=== PATIENT | male | born 1970 | race African-American/Black ===

== ENCOUNTER 2016-11-03 13:40 | Inpatient (IN) | payer MEDICARE, MEDICAID ==
[~2016-11-03] VITALS: Ht 172.7 cm; Wt 99.8 kg
[2016-11-03 17:03] LABS: BASOPHILS % 1.1 % (0.0-2.0); EOSINOPHILS % 0.9 % (0.0-5.0); HEMOGLOBIN. 9.9 g/dL (14.0-18.0); LYMPHOCYTES % 18.8 % (20.0-50.0); MEAN CORPUSCULAR HEMOGLOBIN 31.8 pg (28.0-32.0); MEAN CORPUSCULAR VOLUME 96.3 fL (80.0-94.0); MEAN PLATELET VOLUME 7.3 fl (7.4-10.4); MONOCYTES % 11.1 % (2.0-8.0); NEUTROPHILS % 68.1 % (40.0-76.0); PLATELET 277 x1000/uL (130-400); RED BLOOD CELL COUNT 3.12 mill/uL (4.7-6.1); RED CELL DISTRIBUTION WIDTH 17.4 % (11.6-14.6); WHITE BLOOD COUNT 6.7 x1000/uL (4.5-11.0)
[2016-11-03 17:08] LABS: CHLORIDE 99 mEq/L (98-107); INDEX HEMOLYSI 1 (1-3); INDEX ICTERIC 1 (1-4); INDEX LIPEMIC 1 (1-3)
[2016-11-03 17:10] LABS: PROTHROMBIN TIME 10.7 sec
[2016-11-03 17:22] LABS: ALANINE AMINOTRANSFERASE 15 IU/L (13-61); ALBUMIN 3.5 g/dL (3.4-5.0); ANION GAP 20; CALCIUM 7.9 mg/dL (8.5-10.1); CARBON DIOXIDE 25 mEq/L (21-32); UREA NITROGEN BLOOD 59 mg/dL (7-21); eGFR 3 mL/min (>60)
[2016-11-03] MEDS ORDERED: DEXTROSE 50% WATER 50ML SYRINGE IV PRN (20:30)
[2016-11-03] MEDS ORDERED: IPRATROPIUM/ALBUTEROL 0.5-3(2.5)MG/3ML NEB INH PRN (20:30)
[2016-11-03] MEDS ORDERED: TRAMADOL 50MG TABLET PO PRN (20:30)
[2016-11-03] MEDS ORDERED: MAGNESIUM/ALUMINUM HYDROXIDE/SIMETHICONE 30ML UDC PO PRN (20:30)
[2016-11-03] MEDS ORDERED: DIPHENHYDRAMINE 50MG/ML VIAL IV PRN (20:30)
[2016-11-03] MEDS ORDERED: NITROGLYCERIN 0.4MG TABLET SL SL PRN (20:30)
[2016-11-03] MEDS ORDERED: GUAIFENESIN 200MG/10ML SUGAR FREE UDC PO PRN (20:30)
[2016-11-03] MEDS ORDERED: CLONIDINE 0.1MG TABLET PO PRN (20:30)
[2016-11-03] MEDS ORDERED: ZOLPIDEM TARTRATE 5MG TABLET PO PRN (20:30)
[2016-11-03] MEDS ORDERED: ACETAMINOPHEN 325MG TABLET PO PRN (20:30)
[2016-11-03] MEDS ORDERED: DOCUSATE SODIUM 100MG CAPSULE PO PRN (20:30)
[2016-11-03] MEDS: MORPHINE SULFATE 2 MG/ML CPJ (NOT FOR IM USE) IV PRN (20:41)
[2016-11-03] MEDS: ONDANSETRON HCL 4MG/2ML VIAL IV PRN (20:41)
[2016-11-03] MEDS ORDERED: HYDROCODONE/ACETAMINOPHEN 5/325MG TABLET PO ONE (20:45)
[2016-11-03] MEDS: INSULIN LISPRO 100 UNITS/ML SUBCUT SCH (21:00)
[2016-11-03] MEDS: BLOOD SUGAR DIAGNOSTIC STRIP TEST SCH (21:59)
[2016-11-03 22:15] VITALS: BP 180/108
[2016-11-04] VITALS: BP 106/67
[2016-11-04 04:00] VITALS: BP 121/71
[2016-11-04] MEDS: BLOOD SUGAR DIAGNOSTIC STRIP TEST SCH ×4 (06:21→20:34)
[2016-11-04] MEDS: MORPHINE SULFATE 2 MG/ML CPJ (NOT FOR IM USE) IV PRN ×2 (06:28→12:07)
[2016-11-04] MEDS: ONDANSETRON HCL 4MG/2ML VIAL IV PRN ×3 (06:36→18:47)
[2016-11-04] MEDS ORDERED: SEVELAMER CARBONATE 800 MG TABLET PO SCH (07:50)
[2016-11-04] MEDS: INSULIN LISPRO 100 UNITS/ML SUBCUT SCH ×4 (07:50→20:33)
[2016-11-04 08:00] VITALS: BP 120/77
[2016-11-04] MEDS: SEVELAMER CARBONATE 800 MG TABLET PO SCH ×3 (08:20→18:20)
[2016-11-04] MEDS: AMLODIPINE 10MG TABLET PO SCH (09:00)
[2016-11-04] MEDS: LOSARTAN POTASSIUM 50 MG TABLET PO SCH ×2 (09:00→20:30)
[2016-11-04] MEDS: FOLIC ACID/VITAMIN B COMP W-C TABLET PO SCH (09:00)
[2016-11-04] MEDS: ENOXAPARIN 30MG/0.3ML SYR SUBCUT SCH (09:00)
[2016-11-04] MEDS: PANTOPRAZOLE SODIUM 40 MG/VIAL IV SCH (09:06)
[2016-11-04] MEDS: CALCIUM ACETATE 667MG CAPSULE PO SCH ×3 (09:16→20:30)
[2016-11-04 11:47] VITALS: BP 122/78
[2016-11-04] MEDS ORDERED: BACITRACIN ZINC 15GM TUBE TOP ONE (14:48)
[2016-11-04] MEDS ORDERED: GELATIN SPONGE,ABSORBABLE SZ 100 ONE (14:48)
[2016-11-04] MEDS ORDERED: THROMBIN (BOVINE) 5000 UNITS/VIAL TOP ONE (14:48)
[2016-11-04] MEDS ORDERED: BUPIVACAINE HCL/PF 0.5% (5MG/ML) 10ML ONE (14:49)
[2016-11-04] MEDS ORDERED: HEPARIN SODIUM 1,000 UNIT/1ML VIAL IV ONE (14:49)
[2016-11-04] MEDS ORDERED: BACITRACIN 50,000 UNITS/VIAL ONE (14:49)
[2016-11-04] MEDS ORDERED: LIDOCAINE HCL 1% 20ML VIAL (Pyxis) INJ ONE ×2 (14:49→16:10)
[2016-11-04] MEDS ORDERED: ONDANSETRON HCL 4MG/2ML VIAL IV PRN (15:30)
[2016-11-04] MEDS ORDERED: MEPERIDINE HCL/PF 25MG/ML CPJ IV PRN (15:30)
[2016-11-04] MEDS ORDERED: LABETALOL HCL 20MG/4ML CARPUJECT IV PRN (15:30)
[2016-11-04] MEDS ORDERED: HYDROMORPHONE HCL/PF 2MG/ML CPJ IV PRN (15:30)
[2016-11-04] MEDS ORDERED: CEFAZOLIN SODIUM 1000MG/VIAL ONE (16:10)
[2016-11-04] MEDS ORDERED: DEXAMETHASONE 4MG/ML 1ML VIAL ONE (16:10)
[2016-11-04] MEDS ORDERED: SODIUM CHLORIDE 0.9% 10ML VIAL ONE (16:10)
[2016-11-04] MEDS ORDERED: PROPOFOL 200MG/20ML VIAL IV ONE ×2 (16:10→16:17)
[2016-11-04] MEDS ORDERED: ONDANSETRON HCL 4MG/2ML VIAL ONE (16:11)
[2016-11-04] MEDS ORDERED: FENTANYL CITRATE/PF 50MCG/ML 2ML VIAL ONE (16:13)
[2016-11-04] MEDS ORDERED: HEPARIN 1000 UNITS/ML 10ML ONE (16:41)
[2016-11-04 18:00] VITALS: BP 148/91
[2016-11-04] MEDS: MORPHINE SULFATE 4 MG/ML CPJ (NOT FOR IM USE) IV PRN (18:48)
[2016-11-04 20:00] VITALS: BP 139/97
[2016-11-04] MEDS ORDERED: EPOETIN ALFA 4000UNITS/ML VIAL SUBCUT SCH (21:00)
[2016-11-05] VITALS: BP 155/87
[2016-11-05] MEDS: MORPHINE SULFATE 4 MG/ML CPJ (NOT FOR IM USE) IV PRN (00:54)
[2016-11-05 04:51] VITALS: BP 157/93
[2016-11-05] MEDS: BLOOD SUGAR DIAGNOSTIC STRIP TEST SCH ×4 (06:41→21:00)
[2016-11-05 08:00] VITALS: BP 128/73
[2016-11-05] MEDS ORDERED: METHADONE HCL 10MG TABLET PO PRN (09:00)
[2016-11-05] MEDS ORDERED: PARICALCITOL 5 MCG/ML 1ML IV NR (09:30)
[2016-11-05] MEDS: INSULIN LISPRO 100 UNITS/ML SUBCUT SCH ×4 (09:56→21:00)
[2016-11-05] MEDS: PANTOPRAZOLE SODIUM 40 MG/VIAL IV SCH (09:57)
[2016-11-05] MEDS: SEVELAMER CARBONATE 800 MG TABLET PO SCH ×3 (09:57→18:28)
[2016-11-05] MEDS: CALCIUM ACETATE 667MG CAPSULE PO SCH ×4 (09:58→22:36)
[2016-11-05] MEDS: FOLIC ACID/VITAMIN B COMP W-C TABLET PO SCH (09:58)
[2016-11-05] MEDS: LOSARTAN POTASSIUM 50 MG TABLET PO SCH ×2 (11:32→21:00)
[2016-11-05] MEDS: AMLODIPINE 10MG TABLET PO SCH (11:32)
[2016-11-05] MEDS: ENOXAPARIN 30MG/0.3ML SYR SUBCUT SCH (11:38)
[2016-11-05 12:00] VITALS: BP 137/76
[2016-11-05] MEDS: MORPHINE SULFATE 2 MG/ML CPJ (NOT FOR IM USE) IV PRN ×2 (15:22→21:32)
[2016-11-05 16:00] VITALS: BP 135/89
[2016-11-05] MEDS ORDERED: CINACALCET HCL 30MG TABLET PO SCH (19:00)
[2016-11-05 20:50] VITALS: BP 95/64
[2016-11-06] VITALS: BP 120/67
[2016-11-06 04:42] VITALS: BP 139/87
[2016-11-06] MEDS: BLOOD SUGAR DIAGNOSTIC STRIP TEST SCH (06:47)
[2016-11-06 08:00] VITALS: BP 112/74
[2016-11-06] MEDS: INSULIN LISPRO 100 UNITS/ML SUBCUT SCH (08:08)
[2016-11-06 08:11] VITALS: BP 112/74
[2016-11-06] MEDS: ENOXAPARIN 30MG/0.3ML SYR SUBCUT SCH (08:11)
[2016-11-06 08:22] VITALS: BP 112/74
[2016-11-06] MEDS: MORPHINE SULFATE 2 MG/ML CPJ (NOT FOR IM USE) IV PRN (08:22)
[2016-11-06] MEDS: ONDANSETRON HCL 4MG/2ML VIAL IV PRN (08:22)
[2016-11-06] MEDS: SEVELAMER CARBONATE 800 MG TABLET PO SCH (08:57)
[2016-11-06] MEDS: LOSARTAN POTASSIUM 50 MG TABLET PO SCH (08:58)
[2016-11-06] MEDS: AMLODIPINE 10MG TABLET PO SCH (08:58)
[2016-11-06] MEDS: FOLIC ACID/VITAMIN B COMP W-C TABLET PO SCH (08:59)
[2016-11-06] MEDS: CALCIUM ACETATE 667MG CAPSULE PO SCH (08:59)
[2016-11-06] MEDS ORDERED: FAMOTIDINE 20MG TABLET PO SCH (09:00)
== END 2016-11-06 11:20 | disposition home or self-care (01) | DRG 252 ==
LOC: ER 16:39 → 6WST 18:49 → SUPCPDRO 20:15
PROVIDERS: ADMIT Internal Medicine; ATTEND Internal Medicine
PROC: 03R Upper Arteries, Replacement (ICD-10-PCS; 2016-11-04)
PROC: 03C70ZZ Extirpation of Matter from Right Brachial Artery, Open Approach (ICD-10-PCS; principal; 2016-11-04 14:30)
PROC: 5A1D00Z (ICD-10-PCS; 2016-11-05)
DX: T82.868A Thrombosis due to vascular prosthetic devices, implants and grafts, initial encounter (principal); I50.33 Acute on chronic diastolic (congestive) heart failure; N18.6 End stage renal disease; I13.2 Hypertensive heart and chronic kidney disease with heart failure and with stage 5 chronic kidney disease, or end stage renal disease; T82.41XA Breakdown (mechanical) of vascular dialysis catheter, initial encounter; Z99.2 Dependence on renal dialysis; D63.8 Anemia in other chronic diseases classified elsewhere; M79.89 Other specified soft tissue disorders; R91.8 Other nonspecific abnormal finding of lung field; Y84.1 Kidney dialysis as the cause of abnormal reaction of the patient, or of later complication, without mention of misadventure at the time of the procedure; E11.22 Type 2 diabetes mellitus with diabetic chronic kidney disease; E83.51 Hypocalcemia; Z79.4 Long term (current) use of insulin; Z83.3 Family history of diabetes mellitus; Y92.89 Other specified places as the place of occurrence of the external cause; Z91.15 Patient's noncompliance with renal dialysis
CPT/HCPCS: 36415; 71010; 80053; 80061; 82962; 83036; 85025; 85610; 88304; 96374; 96375; 99285; A4216; C9113; J0690; J0885; J1100; J1170; J1644; J1650; J1815; J2270; J2405; J2501; J2704; J3010; J3490; J7040

== ENCOUNTER 2016-12-04 17:37 | Inpatient (IN) | payer MEDICARE, MEDICAID ==
[~2016-12-04] VITALS: Ht 172.7 cm; Wt 91.6 kg
[2016-12-04 19:21] LABS: BASOPHILS % 0.5 % (0.0-2.0); EOSINOPHILS % 2.1 % (0.0-5.0); HEMATOCRIT. 27.2 % (42.0-52.0); HEMOGLOBIN. 8.8 g/dL (14.0-18.0); LYMPHOCYTES % 19.7 % (20.0-50.0); MEAN CORPUSCULAR HEMOGLOBIN 29.9 pg (28.0-32.0); MEAN CORPUSCULAR HGB CONC 32.2 g/dL (31.0-37.0); MEAN CORPUSCULAR VOLUME 92.8 fL (80.0-94.0); MEAN PLATELET VOLUME 8.2 fl (7.4-10.4); MONOCYTES % 12.6 % (2.0-8.0); NEUTROPHILS % 65.1 % (40.0-76.0); PLATELET 241 x1000/uL (130-400); RED BLOOD CELL COUNT 2.93 mill/uL (4.7-6.1); RED CELL DISTRIBUTION WIDTH 15.7 % (11.6-14.6); WHITE BLOOD COUNT 7.3 x1000/uL (4.5-11.0)
[2016-12-04 19:27] LABS: INR 1.1; PARTIAL THROMBOPLASTIN TIME 25.4 sec (24.0-34.0); PROTHROMBIN TIME 11.3 sec
[2016-12-04 19:34] LABS: ALANINE AMINOTRANSFERASE 11 IU/L (13-61); ALBUMIN 3.3 g/dL (3.4-5.0); ANION GAP 15; CARBON DIOXIDE 35 mEq/L (21-32); CHLORIDE 93 mEq/L (98-107); INDEX HEMOLYSI 1 (1-3); INDEX ICTERIC 1 (1-4); INDEX LIPEMIC 1 (1-3); UREA NITROGEN BLOOD 37 mg/dL (7-21); eGFR 5 mL/min (>60)
[2016-12-05] VITALS (8 sets, daily range): BP systolic 97–147; BP diastolic 63–94
[2016-12-05] MEDS ORDERED: [UNRECOGNIZED DRUG - OTHER] SUBCUT (01:41)
[2016-12-05] MEDS ORDERED: ASPI-1035 PO (01:41)
[2016-12-05] MEDS ORDERED: HYDR-523 PO (01:41)
[2016-12-05] MEDS ORDERED: SEVE800T8 PO (01:41)
[2016-12-05] MEDS ORDERED: DEXTROSE 50% WATER 50ML SYRINGE IV PRN (03:15)
[2016-12-05] MEDS ORDERED: CLONIDINE 0.1MG TABLET PO PRN (03:15)
[2016-12-05] MEDS: BLOOD SUGAR DIAGNOSTIC STRIP TEST SCH ×4 (07:40→20:43)
[2016-12-05] MEDS: INSULIN LISPRO 100 UNITS/ML SUBCUT SCH ×7 (07:40→20:43)
[2016-12-05 08:26] LABS: BASOPHILS % 0.6 % (0.0-2.0); EOSINOPHILS % 3.3 % (0.0-5.0); HEMATOCRIT. 27.3 % (42.0-52.0); HEMOGLOBIN. 8.6 g/dL (14.0-18.0); LYMPHOCYTES % 23.2 % (20.0-50.0); MEAN CORPUSCULAR HEMOGLOBIN 29.2 pg (28.0-32.0); MEAN CORPUSCULAR HGB CONC 31.5 g/dL (31.0-37.0); MEAN CORPUSCULAR VOLUME 92.6 fL (80.0-94.0); MEAN PLATELET VOLUME 8.5 fl (7.4-10.4); MONOCYTES % 12.2 % (2.0-8.0); NEUTROPHILS % 60.7 % (40.0-76.0); PLATELET 261 x1000/uL (130-400); RED BLOOD CELL COUNT 2.95 mill/uL (4.7-6.1); RED CELL DISTRIBUTION WIDTH 15.9 % (11.6-14.6); WHITE BLOOD COUNT 6.4 x1000/uL (4.5-11.0)
[2016-12-05] MEDS: SEVELAMER CARBONATE 800 MG TABLET PO SCH ×3 (08:40→18:53)
[2016-12-05 08:43] LABS: CALCIUM 7.9 mg/dL (8.5-10.1)
[2016-12-05] MEDS ORDERED: SORBITOL 70% SOLN 30ML PO NR ×2 (09:00→13:00)
[2016-12-05] MEDS: PANTOPRAZOLE SODIUM 40 MG/VIAL IV SCH (09:00)
[2016-12-05] MEDS: LOSARTAN POTASSIUM 50 MG TABLET PO SCH ×2 (09:00→20:43)
[2016-12-05] MEDS: AMLODIPINE 10MG TABLET PO SCH (09:00)
[2016-12-05] MEDS ORDERED: SODIUM CHLORIDE 0.9% 10ML VIAL ONE (11:53)
[2016-12-05] MEDS ORDERED: SIMETHICONE 40 MG/0.6 ML 30ML ONE (11:53)
[2016-12-05] MEDS ORDERED: NA PHOS,M-B/NA PHOS,DI-BA ENEMA 118ML PR NR (14:00)
[2016-12-05] MEDS ORDERED: FENTANYL CITRATE/PF 50MCG/ML 2ML VIAL IV PRN (15:23)
[2016-12-05] MEDS ORDERED: FENTANYL CITRATE/PF 50MCG/ML 2ML VIAL ONE (15:28)
[2016-12-05] MEDS ORDERED: MIDAZOLAM HCL 5 MG/5 ML VIAL ONE (15:28)
[2016-12-05] MEDS ORDERED: MIDAZOLAM HCL 5 MG/5 ML VIAL IV PRN (16:15)
[2016-12-05] MEDS ORDERED: CINACALCET HCL 30MG TABLET PO SCH (17:00)
[2016-12-05] MEDS: HYDROCODONE/ACETAMINOPHEN 5/325MG TABLET PO PRN ×2 (17:04→20:54)
[2016-12-05] MEDS ORDERED: INSULIN DETEMIR UD 100 UNITS/ML SYR SUBCUT SCH (22:00)
[2016-12-06] VITALS: BP 125/72
[2016-12-06 02:00] VITALS: BP 125/72
[2016-12-06 04:00] VITALS: BP 110/65
[2016-12-06] MEDS: BLOOD SUGAR DIAGNOSTIC STRIP TEST SCH (07:40)
[2016-12-06 08:00] VITALS: BP 135/82
[2016-12-06 08:34] LABS: BASOPHILS % 0.8 % (0.0-2.0); EOSINOPHILS % 3.8 % (0.0-5.0); HEMATOCRIT. 25.6 % (42.0-52.0); HEMOGLOBIN. 8.2 g/dL (14.0-18.0); LYMPHOCYTES % 23.8 % (20.0-50.0); MEAN CORPUSCULAR HEMOGLOBIN 30.1 pg (28.0-32.0); MEAN CORPUSCULAR HGB CONC 32.2 g/dL (31.0-37.0); MEAN CORPUSCULAR VOLUME 93.6 fL (80.0-94.0); MEAN PLATELET VOLUME 8.3 fl (7.4-10.4); MONOCYTES % 11.1 % (2.0-8.0); NEUTROPHILS % 60.5 % (40.0-76.0); PLATELET 223 x1000/uL (130-400); RED BLOOD CELL COUNT 2.74 mill/uL (4.7-6.1); RED CELL DISTRIBUTION WIDTH 16.1 % (11.6-14.6); WHITE BLOOD COUNT 6.4 x1000/uL (4.5-11.0)
[2016-12-06] MEDS: INSULIN LISPRO 100 UNITS/ML SUBCUT SCH ×2 (08:40→08:46)
[2016-12-06] MEDS: PANTOPRAZOLE SODIUM 40 MG/VIAL IV SCH (08:40)
[2016-12-06] MEDS: LOSARTAN POTASSIUM 50 MG TABLET PO SCH (08:41)
[2016-12-06] MEDS: SEVELAMER CARBONATE 800 MG TABLET PO SCH (08:41)
[2016-12-06] MEDS: AMLODIPINE 10MG TABLET PO SCH (08:41)
[2016-12-06 09:03] LABS: CALCIUM 7.5 mg/dL (8.5-10.1)
[2016-12-06 11:20] VITALS: BP 114/67
[2016-12-06 11:22] VITALS: BP 135/82
== END 2016-12-06 11:45 | disposition home or self-care (01) | DRG 393 ==
LOC: ER 18:46 → 7WST 22:06
PROVIDERS: ADMIT Hospitalist; ATTEND Hospitalist
PROC: 0DJD8ZZ Inspection of Lower Intestinal Tract, Via Natural or Artificial Opening Endoscopic (ICD-10-PCS; 2016-12-05)
PROC: 5A1D00Z (ICD-10-PCS; principal; 2016-12-05 15:30)
DX: K64.8 Other hemorrhoids (principal); N18.6 End stage renal disease; K62.5 Hemorrhage of anus and rectum; D62 Acute posthemorrhagic anemia; I12.0 Hypertensive chronic kidney disease with stage 5 chronic kidney disease or end stage renal disease; N25.81 Secondary hyperparathyroidism of renal origin; E10.22 Type 1 diabetes mellitus with diabetic chronic kidney disease; Z79.4 Long term (current) use of insulin; Z83.3 Family history of diabetes mellitus; Z87.19 Personal history of other diseases of the digestive system; Z99.2 Dependence on renal dialysis
CPT/HCPCS: 36415; 71010; 80048; 80053; 82962; 85025; 85610; 85730; 86850; 86900; 93005; 99285; A4216; C9113; J1815; J2250; J3010; J7030

== ENCOUNTER 2017-02-21 17:18 | Inpatient (IN) | payer MEDICARE, MEDICAID ==
[~2017-02-21] VITALS: Ht 172.7 cm; Wt 70.8 kg
[~2017-02-21 17:18] MED LIST: ASPI-1159 PO; HYDR-523 PO; SEVE800T8 PO; [UNRECOGNIZED DRUG - OTHER] SUBCUT
[2017-02-21] MEDS ORDERED: ACETAMINOPHEN 325MG TABLET PO STA ×2 (19:04→19:27)
[2017-02-21] MEDS ORDERED: LEVOFLOXACIN 750MG PREMIX 150 ML IV ONE (19:15)
[2017-02-21] MEDS ORDERED: VANCOMYCIN 1 G PREMIX 200 ML IV ONE (19:15)
[2017-02-21 19:18] LABS: HEMATOCRIT. 38.2 % (42.0-52.0); HEMOGLOBIN. 12.6 g/dL (14.0-18.0); MEAN PLATELET VOLUME 8.5 fl (7.4-10.4); PLATELET 196 x1000/uL (130-400); RED CELL DISTRIBUTION WIDTH 16.8 % (11.6-14.6)
[2017-02-21 19:24] LABS: INR 1.2
[2017-02-21] MEDS ORDERED: SODIUM CHLORIDE 0.9% 1,000 ML IV ONE (19:28)
[2017-02-21 19:34] LABS: CARBON DIOXIDE 20 mEq/L (21-32); CHLORIDE 95 mEq/L (98-107); ETHANOL BLOOD < 10 mg/dL; TROPONIN I 0.08 ng/mL (0.00-0.04)
[2017-02-21 19:38] LABS: BG CARBOXYHEMOGLOBIN 0.4 % (0.5-1.5); BG FRACTION INSPIRED OXYGEN 32; BG HCO3 ACT 15.8 mmol/L (22.0-26.0); BG METHEMOGLOBIN 0.4 % (0.0-1.5); BG OXYHEMOGLOBIN 95.2 % (94.0-97.0); BG PCO2 27.9 mmHg (35.0-45.0); BG PH 7.371 (7.350-7.450); BG PO2 98.2 mmHg (75.0-100.0); BG SAMPLE SITE LEFT RADIAL; BG TOTAL HEMOGLOBIN 12.8 g/dL (12.0-18.0); BG VENT MODE NASAL CANNULA
[2017-02-21] MEDS: ONDANSETRON HCL 4MG/2ML VIAL IV PRN (19:57)
[2017-02-21 21:16] LABS: CLARITY URINE CLOUDY (CLEAR); COLOR URINE YELLOW (YELLOW); GLUCOSE URINE TRACE (NEGATIVE); KETONES URINE TRACE (NEGATIVE); LEUKOCYTE ESTERASE URINE NEGATIVE (NEGATIVE); NITRITE URINE NEGATIVE (NEGATIVE); OCCULT BLOOD URINE 2+ (NEGATIVE); PH URINE 5.5 (4.5-8.0); PROTEIN URINE 4+ (NEGATIVE); SPECIFIC GRAVITY URINE 1.019 (1.005-1.030); UROBILINOGEN URINE 0.2 E.U./dL (0.2-1.0)
[2017-02-21 21:28] LABS: PLATELET ESTIMATE NORMAL
[2017-02-21 21:48] LABS: *AMPHETAMINES SCREEN URINE NEGATIVE (NEGATIVE); *BARBITURATES SCREEN URINE NEGATIVE (NEGATIVE); *BENZODIAZEPINES SCREEN URINE NEGATIVE (NEGATIVE); *COCAINE SCREEN URINE NEGATIVE (NEGATIVE); CANNABINOID URINE SCREEN NEGATIVE (NEGATIVE); METHADONE URINE SCREEN NEGATIVE (NEGATIVE); OPIATES URINE SCREEN NEGATIVE (NEGATIVE); PHENCYCLIDINE URINE SCREEN NEGATIVE (NEGATIVE)
[2017-02-22] MEDS ORDERED: CLONIDINE 0.1MG TABLET PO PRN (03:45)
[2017-02-22] MEDS ORDERED: METOPROLOL TARTRATE 25MG TABLET PO NR (03:45)
[2017-02-22] MEDS ORDERED: ONDANSETRON HCL 4MG TABLET PO PRN (03:45)
[2017-02-22] MEDS ORDERED: ACETAMINOPHEN 325MG TABLET PO PRN ×2 (03:45→10:30)
[2017-02-22] MEDS: MORPHINE SULFATE 2 MG/ML CPJ (NOT FOR IM USE) IV PRN ×3 (03:56→20:51)
[2017-02-22] MEDS: ONDANSETRON HCL 4MG/2ML VIAL IV PRN ×4 (03:57→20:51)
[2017-02-22 08:54] VITALS: BP 161/93
[2017-02-22] MEDS ORDERED: ACETAMINOPHEN 650MG SUPP PR PRN (10:30)
[2017-02-22] MEDS ORDERED: DIPHENHYDRAMINE 50MG/ML VIAL IV PRN (10:30)
[2017-02-22] MEDS ORDERED: ACETAMINOPHEN 650MG/20.3ML UDC GT PRN (10:30)
[2017-02-22] MEDS ORDERED: VANCOMYCIN 1 G PREMIX 200 ML IV SCH (10:30)
[2017-02-22] MEDS ORDERED: MAGNESIUM/ALUMINUM HYDROXIDE/SIMETHICONE 30ML UDC PO PRN (10:30)
[2017-02-22] MEDS ORDERED: IPRATROPIUM/ALBUTEROL 0.5-3(2.5)MG/3ML NEB INH PRN (10:30)
[2017-02-22] MEDS ORDERED: HYDROCODONE/ACETAMINOPHEN 5/325MG TABLET PO PRN (10:30)
[2017-02-22] MEDS ORDERED: NA PHOS,M-B/NA PHOS,DI-BA ENEMA 118ML PR PRN (10:30)
[2017-02-22] MEDS ORDERED: DEXTROSE 50% WATER 50ML SYRINGE IV PRN (10:45)
[2017-02-22] MEDS ORDERED: ENOXAPARIN 40MG/0.4ML SYR SUBCUT SCH (11:00)
[2017-02-22 12:00] VITALS: BP 161/98
[2017-02-22] MEDS: BLOOD SUGAR DIAGNOSTIC STRIP TEST SCH ×3 (12:10→20:57)
[2017-02-22] MEDS: CLONIDINE 0.1MG TABLET PO PRN (13:00)
[2017-02-22] MEDS: INSULIN LISPRO 100 UNITS/ML SUBCUT SCH ×3 (13:35→20:57)
[2017-02-22] MEDS: SODIUM CHLORIDE 0.9% INJ 3ML FLUSH IVF SCH ×2 (14:00→18:27)
[2017-02-22] MEDS ORDERED: VANCOMYCIN 500 MG PREMIX 100 ML IV NR (15:00)
[2017-02-22] MEDS: DEXT 5%/0.45% NACL 1000ML 1,000 ML IV SCH (15:29)
[2017-02-22] MEDS: SILVER SULFADIAZINE 1% CREAM 25GM TOP SCH (15:30)
[2017-02-22 16:00] VITALS: BP 143/89
[2017-02-22] MEDS: CEFTRIAXONE 2 G in DEXTROSE 5% WATER 50 ML IV SCH (18:29)
[2017-02-22 20:00] VITALS: BP 149/86
[2017-02-23] VITALS: BP 150/88
[2017-02-23 04:32] VITALS: BP 153/94
[2017-02-23] MEDS: ONDANSETRON HCL 4MG/2ML VIAL IV PRN (04:35)
[2017-02-23] MEDS: CLONIDINE 0.1MG TABLET PO PRN (04:35)
[2017-02-23] MEDS: BLOOD SUGAR DIAGNOSTIC STRIP TEST SCH ×4 (06:46→20:30)
[2017-02-23] MEDS: SODIUM CHLORIDE 0.9% INJ 3ML FLUSH IVF SCH ×3 (06:49→20:33)
[2017-02-23] MEDS: INSULIN LISPRO 100 UNITS/ML SUBCUT SCH ×4 (06:50→20:30)
[2017-02-23 08:00] VITALS: BP 142/93
[2017-02-23] MEDS: ENOXAPARIN 30MG/0.3ML SYR SUBCUT SCH (09:00)
[2017-02-23] MEDS: CEFTRIAXONE 2 G in DEXTROSE 5% WATER 50 ML IV SCH ×2 (09:00→09:30)
[2017-02-23] MEDS: SILVER SULFADIAZINE 1% CREAM 25GM TOP SCH (09:00)
[2017-02-23] MEDS: DEXT 5%/0.45% NACL 1000ML 1,000 ML IV SCH (09:31)
[2017-02-23 12:00] VITALS: BP 158/99
[2017-02-23] MEDS ORDERED: GELATIN SPONGE,ABSORBABLE SZ 100 ONE (12:01)
[2017-02-23] MEDS ORDERED: BACITRACIN ZINC 15GM TUBE TOP ONE (12:01)
[2017-02-23] MEDS ORDERED: LIDOCAINE HCL 1% 20ML VIAL (Pyxis) INJ ONE (12:02)
[2017-02-23] MEDS ORDERED: HEPARIN SODIUM 1,000 UNIT/1ML VIAL IV ONE (12:02)
[2017-02-23] MEDS ORDERED: BUPIVACAINE HCL/PF 0.5% (5MG/ML) 10ML ONE (12:02)
[2017-02-23] MEDS ORDERED: NORMAL SALINE 0.9% 10 ML SYR ONE (12:02)
[2017-02-23] MEDS ORDERED: THROMBIN (BOVINE) 5000 UNITS/VIAL TOP ONE (12:02)
[2017-02-23] MEDS ORDERED: BACITRACIN 50,000 UNITS/VIAL ONE (12:03)
[2017-02-23] MEDS ORDERED: SODIUM CHLORIDE 0.9% 1,000 ML ONE (12:05)
[2017-02-23] MEDS ORDERED: CEFAZOLIN SODIUM 1000MG/VIAL ONE (13:59)
[2017-02-23] MEDS ORDERED: HEPARIN 1000 UNITS/ML 10ML ONE (14:13)
[2017-02-23] MEDS ORDERED: VASOPRESSIN 20 UNIT/ML 1ML ONE (14:29)
[2017-02-23] MEDS ORDERED: ONDANSETRON HCL 4MG/2ML VIAL IV PRN (14:30)
[2017-02-23] MEDS ORDERED: LABETALOL HCL 20MG/4ML CARPUJECT IV PRN (14:30)
[2017-02-23] MEDS ORDERED: MEPERIDINE HCL/PF 25MG/ML CPJ IV PRN (14:30)
[2017-02-23] MEDS: HYDROMORPHONE HCL/PF 2MG/ML CPJ IV PRN ×2 (15:54→16:02)
[2017-02-23 20:05] VITALS: BP 143/80
[2017-02-23 21:47] LABS: BASOPHILS % 0.2 % (0.0-2.0); EOSINOPHILS % 0.6 % (0.0-5.0); HEMATOCRIT. 37.7 % (42.0-52.0); HEMOGLOBIN. 12.6 g/dL (14.0-18.0); LYMPHOCYTES % 9.3 % (20.0-50.0); MEAN CORPUSCULAR VOLUME 89.9 fL (80.0-94.0); MEAN PLATELET VOLUME 8.7 fl (7.4-10.4); NEUTROPHILS % 77.9 % (40.0-76.0); PLATELET 174 x1000/uL (130-400); RED CELL DISTRIBUTION WIDTH 17.2 % (11.6-14.6)
[2017-02-23 22:07] LABS: CARBON DIOXIDE 23 mEq/L (21-32); CHLORIDE 94 mEq/L (98-107); HDL CHOLESTEROL 13 mg/dL (40-59); LDL CHOLESTEROL 51 mg/dL (5-100); TROPONIN I < 0.02 ng/mL (0.00-0.04)
[2017-02-24] VITALS: BP 109/78
[2017-02-24] MEDS: MORPHINE SULFATE 2 MG/ML CPJ (NOT FOR IM USE) IV PRN (02:11)
[2017-02-24 04:00] VITALS: BP 127/80
[2017-02-24] MEDS: BLOOD SUGAR DIAGNOSTIC STRIP TEST SCH ×4 (05:47→20:24)
[2017-02-24] MEDS: ONDANSETRON HCL 4MG/2ML VIAL IV PRN ×2 (05:52→15:39)
[2017-02-24] MEDS: INSULIN LISPRO 100 UNITS/ML SUBCUT SCH ×4 (06:00→20:47)
[2017-02-24] MEDS: SODIUM CHLORIDE 0.9% INJ 3ML FLUSH IVF SCH ×3 (06:03→20:47)
[2017-02-24 06:50] LABS: BASOPHILS % 0.4 % (0.0-2.0); EOSINOPHILS % 0.7 % (0.0-5.0); HEMATOCRIT. 36.9 % (42.0-52.0); HEMOGLOBIN. 12.3 g/dL (14.0-18.0); LYMPHOCYTES % 10.3 % (20.0-50.0); MEAN CORPUSCULAR HEMOGLOBIN 29.8 pg (28.0-32.0); MEAN CORPUSCULAR VOLUME 89.6 fL (80.0-94.0); NEUTROPHILS % 77.6 % (40.0-76.0); PLATELET 187 x1000/uL (130-400); RED BLOOD CELL COUNT 4.12 mill/uL (4.7-6.1); RED CELL DISTRIBUTION WIDTH 17.1 % (11.6-14.6)
[2017-02-24 08:00] VITALS: BP 181/99
[2017-02-24] MEDS: CEFTRIAXONE 2 G in DEXTROSE 5% WATER 50 ML IV SCH (09:04)
[2017-02-24] MEDS: ENOXAPARIN 30MG/0.3ML SYR SUBCUT SCH (09:04)
[2017-02-24] MEDS: SILVER SULFADIAZINE 1% CREAM 25GM TOP SCH (09:04)
[2017-02-24 12:13] VITALS: BP 165/87
[2017-02-24] MEDS: CLONIDINE 0.1MG TABLET PO PRN (12:25)
[2017-02-24] MEDS: METOCLOPRAMIDE HCL 10MG/2ML VIAL IV SCH ×2 (12:39→17:31)
[2017-02-24 16:00] VITALS: BP 152/91
[2017-02-24] MEDS ORDERED: LACTULOSE 20G/30ML UDC PO SCH (18:00)
[2017-02-24 20:00] VITALS: BP 150/83
[2017-02-25] VITALS: BP 128/68
[2017-02-25] MEDS: METOCLOPRAMIDE HCL 10MG/2ML VIAL IV SCH ×3 (00:57→11:49)
[2017-02-25] MEDS: CLONIDINE 0.1MG TABLET PO PRN (04:51)
[2017-02-25] MEDS: BLOOD SUGAR DIAGNOSTIC STRIP TEST SCH ×2 (06:03→11:45)
[2017-02-25] MEDS: SODIUM CHLORIDE 0.9% INJ 3ML FLUSH IVF SCH ×2 (06:03→11:48)
[2017-02-25] MEDS: INSULIN LISPRO 100 UNITS/ML SUBCUT SCH ×2 (06:03→11:50)
[2017-02-25 07:11] LABS: HEMATOCRIT. 34.6 % (42.0-52.0); HEMOGLOBIN. 11.8 g/dL (14.0-18.0); MEAN CORPUSCULAR HEMOGLOBIN 30.5 pg (28.0-32.0); MEAN CORPUSCULAR VOLUME 89.7 fL (80.0-94.0); MEAN PLATELET VOLUME 9.4 fl (7.4-10.4); PLATELET 230 x1000/uL (130-400); RED BLOOD CELL COUNT 3.86 mill/uL (4.7-6.1); RED CELL DISTRIBUTION WIDTH 17.3 % (11.6-14.6)
[2017-02-25 07:47] LABS: PHOSPHORUS 10.2 mg/dL (2.5-4.9)
[2017-02-25 08:00] VITALS: BP 135/89
[2017-02-25] MEDS: CEFTRIAXONE 2 G in DEXTROSE 5% WATER 50 ML IV SCH (09:07)
[2017-02-25] MEDS: SILVER SULFADIAZINE 1% CREAM 25GM TOP SCH (09:07)
[2017-02-25] MEDS: ENOXAPARIN 30MG/0.3ML SYR SUBCUT SCH (09:08)
[2017-02-25 12:00] VITALS: BP 107/79
[2017-02-25 12:11] LABS: PLATELET ESTIMATE NORMAL
[2017-02-25 14:09] VITALS: BP 107/79
[2017-02-25] MEDS ORDERED: ONDA4TAB51 (14:24)
[2017-02-25] MEDS ORDERED: HYDROCODONE/ACETAMINOPHEN 5/325MG TABLET PO PRN (14:30)
[2017-02-25] MEDS ORDERED: SEVELAMER CARBONATE 800 MG TABLET PO SCH (17:10)
== END 2017-02-25 15:16 | disposition home health service (06) | DRG 252 ==
LOC: ER 17:18 → EDBEDREQSVC 19:11 → EDBEDREQTM 19:11 → EDBEDREQ 19:11 → 8WST 20:46 → EDBEDREQSVC 02-22 01:03 → EDBEDREQ 02-22 01:03 → ENRESERV 02-22 06:54
PROVIDERS: ADMIT Family Medicine; ATTEND Family Medicine
PROC: 03WY03Z Revision of Infusion Device in Upper Artery, Open Approach (ICD-10-PCS; 2017-02-23)
PROC: 5A1D60Z (ICD-10-PCS; 2017-02-23)
PROC: 0HW Skin and Breast, Revision (ICD-10-PCS; principal; 2017-02-23 13:00)
DX: T82.838A Hemorrhage due to vascular prosthetic devices, implants and grafts, initial encounter (principal); I50.31 Acute diastolic (congestive) heart failure; N18.6 End stage renal disease; I13.2 Hypertensive heart and chronic kidney disease with heart failure and with stage 5 chronic kidney disease, or end stage renal disease; N39.0 Urinary tract infection, site not specified; L97.419 Non-pressure chronic ulcer of right heel and midfoot with unspecified severity; I50.9 Heart failure, unspecified; E11.9 Type 2 diabetes mellitus without complications; K59.00 Constipation, unspecified; E87.5 Hyperkalemia; E11.22 Type 2 diabetes mellitus with diabetic chronic kidney disease; D64.9 Anemia, unspecified; B95.1 Streptococcus, group B, as the cause of diseases classified elsewhere; B96.89 Other specified bacterial agents as the cause of diseases classified elsewhere; E11.621 Type 2 diabetes mellitus with foot ulcer; Z79.899 Other long term (current) drug therapy; Z79.82 Long term (current) use of aspirin; Z99.2 Dependence on renal dialysis; Z91.19 Patient's noncompliance with other medical treatment and regimen; Y84.1 Kidney dialysis as the cause of abnormal reaction of the patient, or of later complication, without mention of misadventure at the time of the procedure; Y92.89 Other specified places as the place of occurrence of the external cause
CPT/HCPCS: 36415; 36600; 71010; 74000; 80048; 80051; 80053; 80061; 80305; 81001; 82375; 82805; 82962; 83036; 83605; 83690; 83880; 84100; 84484; 85025; 85610; 87040; 87070; 87077; 87086; 87186; 87430; 87804; 93005; 93306; 94640; A4216; C1768; C1893; G0482; J0690; J0696; J1170; J1644; J1650; J1815; J1956; J2270; J2405; J2765; J3370; J3490; J7030; J7060; J7620; Q0162

== ENCOUNTER 2017-05-14 09:30 | Inpatient (IN) | payer MEDICARE, MEDICAID ==
[~2017-05-14] VITALS: Ht 172.7 cm; Wt 90.7 kg
[~2017-05-14 09:30] MED LIST changes: +ONDA4TAB51
[2017-05-14 11:52] LABS: BASOPHILS % 0.5 % (0.0-2.0); EOSINOPHILS % 0.9 % (0.0-5.0); LYMPHOCYTES % 11.5 % (20.0-50.0); MEAN CORPUSCULAR HEMOGLOBIN 28.3 pg (28.0-32.0); MEAN CORPUSCULAR VOLUME 85.4 fL (80.0-94.0); MEAN PLATELET VOLUME 7.4 fl (7.4-10.4); MONOCYTES % 8.3 % (2.0-8.0); NEUTROPHILS % 78.8 % (40.0-76.0); PLATELET 403 x1000/uL (130-400); RED BLOOD CELL COUNT 2.44 mill/uL (4.7-6.1); RED CELL DISTRIBUTION WIDTH 17.2 % (11.6-14.6)
[2017-05-14 12:00] LABS: INR 1.1; PARTIAL THROMBOPLASTIN TIME 30.8 sec (23.4-31.0)
[2017-05-14 12:06] LABS: CARBON DIOXIDE 28 mEq/L (21-32); CHLORIDE 99 mEq/L (98-107); PHOSPHORUS 4.5 mg/dL (2.5-4.9); TOTAL IRON BINDING CAPACITY 145 ug/dL (250-450); TROPONIN I 0.03 ng/mL (0.00-0.04)
[2017-05-14 12:12] LABS: HEMATOCRIT. 20.8 % (42.0-52.0); HEMOGLOBIN. 6.9 g/dL (14.0-18.0)
[2017-05-14] MEDS ORDERED: ZOLPIDEM TARTRATE 5MG TABLET PO PRN (12:30)
[2017-05-14] MEDS ORDERED: CLONIDINE 0.1MG TABLET PO PRN (12:30)
[2017-05-14] MEDS ORDERED: ACETAMINOPHEN 325MG TABLET PO PRN (12:30)
[2017-05-14] MEDS ORDERED: TRAMADOL 50MG TABLET PO PRN (12:30)
[2017-05-14] MEDS ORDERED: NA PHOS,M-B/NA PHOS,DI-BA ENEMA 118ML PR PRN (12:30)
[2017-05-14] MEDS ORDERED: MAGNESIUM/ALUMINUM HYDROXIDE/SIMETHICONE 30ML UDC PO PRN (12:30)
[2017-05-14] MEDS ORDERED: DIPHENHYDRAMINE 50MG/ML VIAL IV PRN (12:30)
[2017-05-14] MEDS ORDERED: LORAZEPAM 2MG/ML CPJ IV PRN (12:30)
[2017-05-14] MEDS ORDERED: MORPHINE SULFATE 4 MG/ML CPJ (NOT FOR IM USE) IV PRN (12:30)
[2017-05-14] MEDS ORDERED: DOCUSATE SODIUM 100MG CAPSULE PO PRN (12:30)
[2017-05-14] MEDS ORDERED: GUAIFENESIN 200MG/10ML SUGAR FREE UDC PO PRN (12:30)
[2017-05-14] MEDS ORDERED: IPRATROPIUM/ALBUTEROL 0.5-3(2.5)MG/3ML NEB INH PRN (12:30)
[2017-05-14] MEDS ORDERED: DEXTROSE 50% WATER 50ML SYRINGE IV PRN (12:45)
[2017-05-14 14:00] VITALS: BP_SYST 164; BP_SYST 166; BP_DIAS 74; BP_DIAS 76
[2017-05-14] MEDS: HYDRALAZINE HCL 50MG TABLET PO SCH ×2 (14:00→22:12)
[2017-05-14] MEDS: INSULIN LISPRO 100 UNITS/ML SUBCUT SCH ×3 (14:25→21:00)
[2017-05-14] MEDS: BLOOD SUGAR DIAGNOSTIC STRIP TEST SCH ×3 (14:25→21:00)
[2017-05-14] MEDS: LOSARTAN POTASSIUM 50 MG TABLET PO SCH ×2 (14:25→22:12)
[2017-05-14] MEDS: AMLODIPINE 10MG TABLET PO SCH (14:30)
[2017-05-14] MEDS: SEVELAMER CARBONATE 800 MG TABLET PO SCH ×2 (14:30→17:58)
[2017-05-14] MEDS: PANTOPRAZOLE SODIUM 40 MG/VIAL IV SCH (17:05)
[2017-05-14] MEDS: CINACALCET HCL 30MG TABLET PO SCH (17:58)
[2017-05-14 20:00] VITALS: BP 146/88
[2017-05-14 20:31] LABS: HEMATOCRIT 31.7 % (42.0-52.0); HEMOGLOBIN 9.6 g/dL (14.0-18.0)
[2017-05-14] MEDS: METOPROLOL TARTRATE 25MG TABLET PO SCH (22:12)
[2017-05-15] VITALS: BP 134/85
[2017-05-15 04:00] VITALS: BP 148/86
[2017-05-15] MEDS: INSULIN LISPRO 100 UNITS/ML SUBCUT SCH ×4 (06:06→20:51)
[2017-05-15] MEDS: BLOOD SUGAR DIAGNOSTIC STRIP TEST SCH ×4 (06:06→20:26)
[2017-05-15 06:07] LABS: BASOPHILS % 0.5 % (0.0-2.0); EOSINOPHILS % 1.3 % (0.0-5.0); HEMATOCRIT. 22.9 % (42.0-52.0); HEMOGLOBIN. 7.4 g/dL (14.0-18.0); LYMPHOCYTES % 15.7 % (20.0-50.0); MEAN CORPUSCULAR HEMOGLOBIN 27.5 pg (28.0-32.0); MEAN CORPUSCULAR VOLUME 84.3 fL (80.0-94.0); MEAN PLATELET VOLUME 7.7 fl (7.4-10.4); MONOCYTES % 9.9 % (2.0-8.0); NEUTROPHILS % 72.6 % (40.0-76.0); PLATELET 356 x1000/uL (130-400); RED BLOOD CELL COUNT 2.71 mill/uL (4.7-6.1); RED CELL DISTRIBUTION WIDTH 16.5 % (11.6-14.6)
[2017-05-15] MEDS: PANTOPRAZOLE SODIUM 40 MG/VIAL IV SCH ×2 (06:10→17:17)
[2017-05-15] MEDS: HYDRALAZINE HCL 50MG TABLET PO SCH ×3 (06:10→21:28)
[2017-05-15 06:59] LABS: CARBON DIOXIDE 27 mEq/L (21-32); CHLORIDE 102 mEq/L (98-107)
[2017-05-15 08:00] VITALS: BP 116/72
[2017-05-15] MEDS: LOSARTAN POTASSIUM 50 MG TABLET PO SCH ×2 (09:00→21:29)
[2017-05-15] MEDS: METOPROLOL TARTRATE 25MG TABLET PO SCH ×2 (09:00→21:42)
[2017-05-15] MEDS ORDERED: PARICALCITOL 5 MCG/ML 1ML IV SCH (09:00)
[2017-05-15] MEDS: AMLODIPINE 10MG TABLET PO SCH (09:00)
[2017-05-15] MEDS: CINACALCET HCL 30MG TABLET PO SCH (09:09)
[2017-05-15] MEDS: SEVELAMER CARBONATE 800 MG TABLET PO SCH ×3 (09:09→17:17)
[2017-05-15 12:00] VITALS: BP_SYST 124; BP_SYST 153; BP_DIAS 76; BP_DIAS 92
[2017-05-15] MEDS ORDERED: MORPHINE SULFATE 2 MG/ML CPJ (NOT FOR IM USE) IV PRN (14:45)
[2017-05-15 16:00] VITALS: BP 158/98
[2017-05-15] MEDS: ONDANSETRON HCL 4MG/2ML VIAL IV PRN (17:16)
[2017-05-15] MEDS: FERROUS SULFATE 300MG/5ML UDC PO SCH (17:20)
[2017-05-15 20:00] VITALS: BP 155/96
[2017-05-15] MEDS: ASCORBIC ACID 500 MG TABLET PO SCH (21:28)
[2017-05-15] MEDS: EPOETIN ALFA 10000UNITS/ML VIAL SUBCUT SCH (21:28)
[2017-05-16] VITALS: BP 127/81
[2017-05-16 04:00] VITALS: BP 109/62
[2017-05-16] MEDS: PANTOPRAZOLE SODIUM 40 MG/VIAL IV SCH ×2 (05:10→17:09)
[2017-05-16] MEDS: BLOOD SUGAR DIAGNOSTIC STRIP TEST SCH ×4 (05:44→21:44)
[2017-05-16] MEDS: HYDRALAZINE HCL 50MG TABLET PO SCH ×3 (06:08→22:00)
[2017-05-16] MEDS: INSULIN LISPRO 100 UNITS/ML SUBCUT SCH ×4 (07:40→21:00)
[2017-05-16 07:41] VITALS: BP 120/72
[2017-05-16 08:09] LABS: BASOPHILS % 0.6 % (0.0-2.0); EOSINOPHILS % 1.4 % (0.0-5.0); HEMOGLOBIN. 9.8 g/dL (14.0-18.0); LYMPHOCYTES % 15.7 % (20.0-50.0); MEAN CORPUSCULAR HEMOGLOBIN 28.3 pg (28.0-32.0); MEAN CORPUSCULAR VOLUME 84.3 fL (80.0-94.0); MEAN PLATELET VOLUME 7.8 fl (7.4-10.4); MONOCYTES % 10.5 % (2.0-8.0); NEUTROPHILS % 71.8 % (40.0-76.0); PLATELET 347 x1000/uL (130-400); RED BLOOD CELL COUNT 3.44 mill/uL (4.7-6.1)
[2017-05-16] MEDS: FERROUS SULFATE 300MG/5ML UDC PO SCH ×3 (08:48→17:09)
[2017-05-16] MEDS: METOPROLOL TARTRATE 25MG TABLET PO SCH ×2 (08:49→20:55)
[2017-05-16] MEDS: SEVELAMER CARBONATE 800 MG TABLET PO SCH ×3 (08:49→18:10)
[2017-05-16] MEDS: CINACALCET HCL 30MG TABLET PO SCH (08:49)
[2017-05-16] MEDS: LOSARTAN POTASSIUM 50 MG TABLET PO SCH ×2 (08:50→20:55)
[2017-05-16] MEDS: AMLODIPINE 10MG TABLET PO SCH (08:50)
[2017-05-16] MEDS: ASCORBIC ACID 500 MG TABLET PO SCH ×2 (08:50→20:55)
[2017-05-16 09:17] LABS: CARBON DIOXIDE 25 mEq/L (21-32); CHLORIDE 103 mEq/L (98-107)
[2017-05-16 12:00] VITALS: BP 143/91
[2017-05-16 16:00] VITALS: BP 126/77
[2017-05-16 20:00] VITALS: BP 116/75
[2017-05-17] VITALS (7 sets, daily range): BP systolic 121–139; BP diastolic 80–86
[2017-05-17] MEDS: BLOOD SUGAR DIAGNOSTIC STRIP TEST SCH ×4 (06:12→21:00)
[2017-05-17] MEDS: HYDRALAZINE HCL 50MG TABLET PO SCH ×3 (06:19→21:31)
[2017-05-17] MEDS: PANTOPRAZOLE SODIUM 40 MG/VIAL IV SCH ×2 (06:19→17:12)
[2017-05-17] MEDS: INSULIN LISPRO 100 UNITS/ML SUBCUT SCH ×4 (07:01→21:00)
[2017-05-17 07:32] LABS: BASOPHILS % 0.3 % (0.0-2.0); EOSINOPHILS % 1.8 % (0.0-5.0); HEMATOCRIT. 30.3 % (42.0-52.0); HEMOGLOBIN. 10.1 g/dL (14.0-18.0); LYMPHOCYTES % 19.2 % (20.0-50.0); MEAN CORPUSCULAR HEMOGLOBIN 28.2 pg (28.0-32.0); MEAN CORPUSCULAR VOLUME 84.7 fL (80.0-94.0); MONOCYTES % 10.3 % (2.0-8.0); NEUTROPHILS % 68.4 % (40.0-76.0); PLATELET 354 x1000/uL (130-400); RED BLOOD CELL COUNT 3.57 mill/uL (4.7-6.1); RED CELL DISTRIBUTION WIDTH 16.2 % (11.6-14.6)
[2017-05-17] MEDS: SEVELAMER CARBONATE 800 MG TABLET PO SCH ×3 (08:42→17:13)
[2017-05-17] MEDS: FERROUS SULFATE 300MG/5ML UDC PO SCH ×3 (08:42→17:01)
[2017-05-17] MEDS: AMLODIPINE 10MG TABLET PO SCH (08:46)
[2017-05-17] MEDS: METOPROLOL TARTRATE 25MG TABLET PO SCH ×2 (08:46→21:00)
[2017-05-17] MEDS: LOSARTAN POTASSIUM 50 MG TABLET PO SCH ×2 (08:46→21:00)
[2017-05-17] MEDS: CINACALCET HCL 30MG TABLET PO SCH (08:49)
[2017-05-17] MEDS: ASCORBIC ACID 500 MG TABLET PO SCH ×2 (09:23→21:00)
[2017-05-17] MEDS: LACTULOSE 20G/30ML UDC PO SCH ×2 (10:47→17:13)
[2017-05-18] VITALS (7 sets, daily range): BP systolic 115–143; BP diastolic 71–90
[2017-05-18] MEDS: LACTULOSE 20G/30ML UDC PO SCH ×3 (01:14→17:36)
[2017-05-18] MEDS: INSULIN LISPRO 100 UNITS/ML SUBCUT SCH ×4 (05:54→21:21)
[2017-05-18] MEDS: BLOOD SUGAR DIAGNOSTIC STRIP TEST SCH ×5 (05:54→20:47)
[2017-05-18] MEDS: HYDRALAZINE HCL 50MG TABLET PO SCH ×3 (05:55→21:32)
[2017-05-18] MEDS: PANTOPRAZOLE SODIUM 40 MG/VIAL IV SCH ×3 (06:02→21:10)
[2017-05-18 07:01] LABS: BASOPHILS % 0.5 % (0.0-2.0); EOSINOPHILS % 1.4 % (0.0-5.0); HEMATOCRIT. 29.2 % (42.0-52.0); HEMOGLOBIN. 9.7 g/dL (14.0-18.0); MEAN CORPUSCULAR HEMOGLOBIN 27.9 pg (28.0-32.0); MEAN CORPUSCULAR VOLUME 83.9 fL (80.0-94.0); MONOCYTES % 9.9 % (2.0-8.0); NEUTROPHILS % 74.2 % (40.0-76.0); PLATELET 331 x1000/uL (130-400); RED BLOOD CELL COUNT 3.48 mill/uL (4.7-6.1); RED CELL DISTRIBUTION WIDTH 16.1 % (11.6-14.6)
[2017-05-18] MEDS: METOPROLOL TARTRATE 25MG TABLET PO SCH ×2 (09:22→21:12)
[2017-05-18] MEDS: AMLODIPINE 10MG TABLET PO SCH (09:22)
[2017-05-18] MEDS: LOSARTAN POTASSIUM 50 MG TABLET PO SCH ×2 (09:22→21:11)
[2017-05-18] MEDS: CINACALCET HCL 30MG TABLET PO SCH (09:22)
[2017-05-18] MEDS: SEVELAMER CARBONATE 800 MG TABLET PO SCH ×3 (09:23→17:36)
[2017-05-18] MEDS: ASCORBIC ACID 500 MG TABLET PO SCH ×2 (10:06→21:12)
[2017-05-18] MEDS: FERROUS SULFATE 300MG/5ML UDC PO SCH ×3 (10:06→17:35)
[2017-05-18] MEDS ORDERED: PARICALCITOL 5 MCG/ML 1ML IV SCH (17:00)
[2017-05-18] MEDS ORDERED: SORBITOL 70% SOLN 30ML PO NR ×2 (18:00→22:00)
[2017-05-18] MEDS ORDERED: BISACODYL 5MG TABLET PO NR (18:00)
[2017-05-18] MEDS: EPOETIN ALFA 10000UNITS/ML VIAL SUBCUT SCH (21:10)
[2017-05-18] MEDS: ONDANSETRON HCL 4MG/2ML VIAL IV PRN (21:11)
[2017-05-19] VITALS: BP 109/64
[2017-05-19] MEDS: LACTULOSE 20G/30ML UDC PO SCH ×3 (02:00→17:00)
[2017-05-19 04:00] VITALS: BP 127/78
[2017-05-19] MEDS ORDERED: BISACODYL 5MG TABLET PO NR ×2 (06:00→16:00)
[2017-05-19] MEDS: HYDRALAZINE HCL 50MG TABLET PO SCH ×3 (06:00→21:01)
[2017-05-19] MEDS: BLOOD SUGAR DIAGNOSTIC STRIP TEST SCH ×4 (06:26→20:41)
[2017-05-19] MEDS: FERROUS SULFATE 300MG/5ML UDC PO SCH ×3 (06:53→17:00)
[2017-05-19] MEDS: INSULIN LISPRO 100 UNITS/ML SUBCUT SCH ×4 (06:53→20:41)
[2017-05-19 07:11] LABS: INR 1.1; PARTIAL THROMBOPLASTIN TIME 29.3 sec (23.4-31.0); PROTHROMBIN TIME 11.7 sec (9.4-11.6)
[2017-05-19 07:19] LABS: BASOPHILS % 0.4 % (0.0-2.0); HEMATOCRIT. 29.5 % (42.0-52.0); HEMOGLOBIN. 9.6 g/dL (14.0-18.0); LYMPHOCYTES % 20.6 % (20.0-50.0); MEAN CORPUSCULAR HEMOGLOBIN 27.5 pg (28.0-32.0); MEAN CORPUSCULAR VOLUME 84.3 fL (80.0-94.0); MEAN PLATELET VOLUME 8.1 fl (7.4-10.4); MONOCYTES % 12.5 % (2.0-8.0); NEUTROPHILS % 64.5 % (40.0-76.0); PLATELET 313 x1000/uL (130-400); RED CELL DISTRIBUTION WIDTH 16.4 % (11.6-14.6)
[2017-05-19 08:00] VITALS: BP 120/77
[2017-05-19] MEDS: PANTOPRAZOLE SODIUM 40 MG/VIAL IV SCH ×2 (08:49→21:00)
[2017-05-19] MEDS: SEVELAMER CARBONATE 800 MG TABLET PO SCH ×3 (08:49→17:42)
[2017-05-19] MEDS: AMLODIPINE 10MG TABLET PO SCH (08:49)
[2017-05-19] MEDS: METOPROLOL TARTRATE 25MG TABLET PO SCH ×2 (08:49→20:46)
[2017-05-19] MEDS: CINACALCET HCL 30MG TABLET PO SCH (08:49)
[2017-05-19] MEDS: ASCORBIC ACID 500 MG TABLET PO SCH ×2 (08:49→21:00)
[2017-05-19] MEDS: LOSARTAN POTASSIUM 50 MG TABLET PO SCH ×2 (08:50→20:46)
[2017-05-19 09:05] LABS: CARBON DIOXIDE 25 mEq/L (21-32); CHLORIDE 103 mEq/L (98-107)
[2017-05-19 11:51] VITALS: BP 110/65
[2017-05-19 15:54] VITALS: BP 119/74
[2017-05-19] MEDS ORDERED: SORBITOL 70% SOLN 30ML PO NR ×2 (16:00→20:00)
[2017-05-19 20:00] VITALS: BP 114/69
[2017-05-19] MEDS ORDERED: BISACODYL 5MG TABLET PO ONE (20:00)
[2017-05-20] VITALS: BP 120/72
[2017-05-20] MEDS: LACTULOSE 20G/30ML UDC PO SCH ×2 (01:15→09:28)
[2017-05-20 04:30] VITALS: BP 120/84
[2017-05-20] MEDS: HYDRALAZINE HCL 50MG TABLET PO SCH (06:00)
[2017-05-20] MEDS: BLOOD SUGAR DIAGNOSTIC STRIP TEST SCH (06:10)
[2017-05-20] MEDS: INSULIN LISPRO 100 UNITS/ML SUBCUT SCH (06:10)
[2017-05-20 06:27] LABS: BASOPHILS % 0.7 % (0.0-2.0); HEMATOCRIT. 28.3 % (42.0-52.0); HEMOGLOBIN. 9.2 g/dL (14.0-18.0); LYMPHOCYTES % 20.5 % (20.0-50.0); MEAN CORPUSCULAR HEMOGLOBIN 27.7 pg (28.0-32.0); MEAN CORPUSCULAR VOLUME 85.3 fL (80.0-94.0); MEAN PLATELET VOLUME 8.2 fl (7.4-10.4); MONOCYTES % 10.5 % (2.0-8.0); NEUTROPHILS % 66.3 % (40.0-76.0); PLATELET 308 x1000/uL (130-400); RED BLOOD CELL COUNT 3.32 mill/uL (4.7-6.1); RED CELL DISTRIBUTION WIDTH 16.2 % (11.6-14.6)
[2017-05-20 06:34] LABS: INR 1.1; PARTIAL THROMBOPLASTIN TIME 29.8 sec (23.4-31.0); PROTHROMBIN TIME 11.6 sec (9.4-11.6)
[2017-05-20] MEDS ORDERED: SORBITOL 70% SOLN 30ML PO NR ×2 (07:38→12:15)
[2017-05-20] MEDS: FERROUS SULFATE 300MG/5ML UDC PO SCH (07:40)
[2017-05-20] MEDS ORDERED: BISACODYL 5MG TABLET PO NR ×2 (07:43→12:15)
[2017-05-20 08:08] LABS: CARBON DIOXIDE 25 mEq/L (21-32); CHLORIDE 103 mEq/L (98-107)
[2017-05-20] MEDS: SEVELAMER CARBONATE 800 MG TABLET PO SCH (08:10)
[2017-05-20] MEDS: PANTOPRAZOLE SODIUM 40 MG/VIAL IV SCH (08:42)
[2017-05-20] MEDS: AMLODIPINE 10MG TABLET PO SCH (08:43)
[2017-05-20] MEDS: ASCORBIC ACID 500 MG TABLET PO SCH (08:43)
[2017-05-20] MEDS: LOSARTAN POTASSIUM 50 MG TABLET PO SCH (08:43)
[2017-05-20] MEDS: CINACALCET HCL 30MG TABLET PO SCH (08:43)
[2017-05-20] MEDS: METOPROLOL TARTRATE 25MG TABLET PO SCH (08:43)
[2017-05-20 09:00] VITALS: BP 132/72
== END 2017-05-20 12:29 | disposition left against medical advice (07) | DRG 393 ==
LOC: ER 11:34 → 8WST 12:24 → ENRESERV 12:31 → SUPCPDRO 12:39
PROVIDERS: ADMIT Internal Medicine; ATTEND Internal Medicine
PROC: 30233N1 Transfusion of Nonautologous Red Blood Cells into Peripheral Vein, Percutaneous Approach (ICD-10-PCS; principal; 2017-05-14)
PROC: 30233N1 Transfusion of Nonautologous Red Blood Cells into Peripheral Vein, Percutaneous Approach (ICD-10-PCS; 2017-05-15)
PROC: 5A1D70Z Performance of Urinary Filtration, Intermittent, Less than 6 Hours Per Day (ICD-10-PCS; 2017-05-15)
PROC: 5A1D70Z Performance of Urinary Filtration, Intermittent, Less than 6 Hours Per Day (ICD-10-PCS; 2017-05-17)
PROC: 5A1D70Z Performance of Urinary Filtration, Intermittent, Less than 6 Hours Per Day (ICD-10-PCS; 2017-05-18)
DX: K64.8 Other hemorrhoids (principal); N18.6 End stage renal disease; E43 Unspecified severe protein-calorie malnutrition; I13.2 Hypertensive heart and chronic kidney disease with heart failure and with stage 5 chronic kidney disease, or end stage renal disease; E10.22 Type 1 diabetes mellitus with diabetic chronic kidney disease; D62 Acute posthemorrhagic anemia; E10.65 Type 1 diabetes mellitus with hyperglycemia; N25.81 Secondary hyperparathyroidism of renal origin; N39.0 Urinary tract infection, site not specified; I50.20 Unspecified systolic (congestive) heart failure; Z53.21 Procedure and treatment not carried out due to patient leaving prior to being seen by health care provider; Z99.2 Dependence on renal dialysis; Z82.49 Family history of ischemic heart disease and other diseases of the circulatory system; Z83.3 Family history of diabetes mellitus; Z87.19 Personal history of other diseases of the digestive system; Z95.0 Presence of cardiac pacemaker; Z68.30 Body mass index [BMI] 30.0-30.9, adult; Z91.15 Patient's noncompliance with renal dialysis
CPT/HCPCS: 36415; 71010; 80048; 80053; 82270; 82962; 83540; 83550; 83690; 83735; 84100; 84484; 85014; 85018; 85025; 85044; 85610; 85730; 86850; 86900; 86920; 93005; 93970; 99285; C9113; J0885; J1815; J2270; J2405; J2501; J7030; J7050; P9016

== ENCOUNTER → 2017-06-22 | Day surgery (SDC) | payer MEDICARE, MEDICAID ==
[~2017-06-22] MED LIST changes: +AMLO10TA80 PO; +BACITRACIN 50,000 UNITS/VIAL ONE; +BACITRACIN ZINC 15GM TUBE TOP ONE; +BUPIVACAINE HCL/PF 0.5% (5MG/ML) 10ML ONE; +CINA30 PO; +GELATIN SPONGE,ABSORBABLE SZ 100 ONE; +GLIP5TAB12 PO; +HEPARIN SODIUM 1,000 UNIT/1ML VIAL IV ONE; +LIDOCAINE HCL 1% 20ML VIAL (Pyxis) INJ ONE; +METO-396 PO; +NEPVIT PO; +NORMAL SALINE 0.9% 10 ML SYR ONE; +REN800 PO; +THROMBIN (BOVINE) 5000 UNITS/VIAL TOP ONE
[2017-06-22 11:12] LABS: BASOPHILS % 0.9 % (0.0-2.0); EOSINOPHILS % 1.4 % (0.0-5.0); HEMATOCRIT. 31.4 % (42.0-52.0); HEMOGLOBIN. 10.2 g/dL (14.0-18.0); LYMPHOCYTES % 20.1 % (20.0-50.0); MEAN CORPUSCULAR HEMOGLOBIN 28.4 pg (28.0-32.0); MEAN CORPUSCULAR VOLUME 87.5 fL (80.0-94.0); MEAN PLATELET VOLUME 8.2 fl (7.4-10.4); NEUTROPHILS % 70.6 % (40.0-76.0); PLATELET 289 x1000/uL (130-400); RED BLOOD CELL COUNT 3.59 mill/uL (4.7-6.1); RED CELL DISTRIBUTION WIDTH 18.4 % (11.6-14.6)
[2017-06-22 11:28] LABS: INR 1.1; PARTIAL THROMBOPLASTIN TIME 25.2 sec (23.4-31.0); PROTHROMBIN TIME 11.8 sec (9.4-11.6)
== END | disposition home or self-care (01) ==
LOC: OR 10:00
PROVIDERS: ATTEND Surgery Vascular Surgery
DX: N18.6 End stage renal disease (principal); Z53.8 Procedure and treatment not carried out for other reasons
CPT/HCPCS: 36415; 36830; 80048; 82962; 85025; 85610; 85730; 93005; A4216; J1644; J3490

== ENCOUNTER 2017-07-03 09:00 | Day surgery (SDC) | payer MEDICARE, MEDICAID ==
[~2017-07-03] VITALS: Ht 167.6 cm; Wt 83.7 kg
[~2017-07-03 09:00] MED LIST changes: -BACITRACIN 50,000 UNITS/VIAL ONE; -BACITRACIN ZINC 15GM TUBE TOP ONE; -BUPIVACAINE HCL/PF 0.5% (5MG/ML) 10ML ONE; -GELATIN SPONGE,ABSORBABLE SZ 100 ONE; -HEPARIN SODIUM 1,000 UNIT/1ML VIAL IV ONE; -LIDOCAINE HCL 1% 20ML VIAL (Pyxis) INJ ONE; -NORMAL SALINE 0.9% 10 ML SYR ONE; -THROMBIN (BOVINE) 5000 UNITS/VIAL TOP ONE
[2017-07-03] MEDS ORDERED: GELATIN SPONGE,ABSORBABLE SZ 100 ONE (09:06)
[2017-07-03] MEDS ORDERED: BACITRACIN ZINC 15GM TUBE TOP ONE (09:06)
[2017-07-03] MEDS ORDERED: HEPARIN SODIUM 1,000 UNIT/1ML VIAL IV ONE (09:07)
[2017-07-03] MEDS ORDERED: BUPIVACAINE HCL/PF 0.5% (5MG/ML) 10ML ONE ×2 (09:07→09:08)
[2017-07-03] MEDS ORDERED: THROMBIN (BOVINE) 5000 UNITS/VIAL TOP ONE (09:07)
[2017-07-03] MEDS ORDERED: LIDOCAINE HCL 1% 20ML VIAL (Pyxis) INJ ONE (09:08)
[2017-07-03] MEDS ORDERED: BACITRACIN 50,000 UNITS/VIAL ONE (09:08)
[2017-07-03 09:24] LABS: BASOPHILS % 0.7 % (0.0-2.0); EOSINOPHILS % 1.8 % (0.0-5.0); HEMATOCRIT. 29.7 % (42.0-52.0); HEMOGLOBIN. 9.4 g/dL (14.0-18.0); LYMPHOCYTES % 19.1 % (20.0-50.0); MEAN CORPUSCULAR HEMOGLOBIN 28.1 pg (28.0-32.0); MEAN CORPUSCULAR VOLUME 88.6 fL (80.0-94.0); MEAN PLATELET VOLUME 7.6 fl (7.4-10.4); MONOCYTES % 8.7 % (2.0-8.0); NEUTROPHILS % 69.7 % (40.0-76.0); PLATELET 168 x1000/uL (130-400); RED BLOOD CELL COUNT 3.35 mill/uL (4.7-6.1); RED CELL DISTRIBUTION WIDTH 20.9 % (11.6-14.6)
[2017-07-03] MEDS ORDERED: SODIUM CHLORIDE 0.9% 500 ML IV NR (09:30)
[2017-07-03 09:32] LABS: INR 1.2; PARTIAL THROMBOPLASTIN TIME 28.7 sec (23.4-31.0); PROTHROMBIN TIME 12.2 sec (9.4-11.6)
[2017-07-03] MEDS ORDERED: HYDROCODONE/ACETAMINOPHEN 5/325MG TABLET PO PRN (10:00)
[2017-07-03] MEDS ORDERED: LABETALOL 5MG/ML SYR 20 MG/4 ML SYRINGE IV PRN (10:45)
[2017-07-03] MEDS ORDERED: ONDANSETRON HCL 4MG/2ML VIAL IV PRN (10:45)
[2017-07-03] MEDS ORDERED: MEPERIDINE HCL/PF 25MG/ML CPJ IV PRN (10:45)
[2017-07-03] MEDS: HYDROMORPHONE HCL/PF 2MG/ML CPJ IV PRN ×2 (12:42→13:12)
[2017-07-03] MEDS ORDERED: HEPARIN SODIUM 1,000 UNIT/1ML VIAL IV NR (13:00)
[2017-07-03 13:12] VITALS: BP 160/96
== END 2017-07-03 15:20 | disposition home or self-care (01) ==
LOC: OR 09:00
PROVIDERS: ATTEND Surgery Vascular Surgery
DX: I12.0 Hypertensive chronic kidney disease with stage 5 chronic kidney disease or end stage renal disease (principal); E11.22 Type 2 diabetes mellitus with diabetic chronic kidney disease; N18.6 End stage renal disease; I50.9 Heart failure, unspecified; M86.671 Other chronic osteomyelitis, right ankle and foot; E21.2 Other hyperparathyroidism; K64.8 Other hemorrhoids; M86.8X8 Other osteomyelitis, other site; Z99.2 Dependence on renal dialysis; Z86.718 Personal history of other venous thrombosis and embolism; Z79.899 Other long term (current) drug therapy; Z79.82 Long term (current) use of aspirin; Z87.891 Personal history of nicotine dependence
CPT/HCPCS: 36415; 36821; 80048; 82962; 85025; 85610; 85730; 93005; J1170; J1644; J2405; J3490; J7040

== ENCOUNTER 2023-02-04 10:57 | Emergency (ER) | payer MEDICARE, MEDICAID ==
[~2023-02-04] VITALS: Ht 172.7 cm; Wt 77.3 kg
[~2023-02-04 10:57] MED LIST changes: -ASPI-1159 PO; +ASPI-1497 PO; +DOXA-14 PO; -SEVE800T8 PO
[2023-02-04 11:58] VITALS: TEMP 98.7; O2SAT 94
[2023-02-04 12:27] LABS: BASOPHILS % 0.7 % (0.0-2.0); EOSINOPHILS % 2.7 % (0.0-5.0); HEMATOCRIT. 21.5 % (42.0-52.0); HEMOGLOBIN. 7.2 g/dL (14.0-18.0); LYMPHOCYTES % 13.8 % (20.0-50.0); MEAN CORPUSCULAR HEMOGLOBIN 31.8 pg (28.0-32.0); MEAN CORPUSCULAR VOLUME 94.8 fL (80.0-94.0); MEAN PLATELET VOLUME 8.3 fl (7.4-10.4); MONOCYTES % 10.2 % (2.0-8.0); NEUTROPHILS % 72.6 % (40.0-76.0); PLATELET 195 x1000/uL (130-400); RED BLOOD CELL COUNT 2.27 mill/uL (4.7-6.1); RED CELL DISTRIBUTION WIDTH 19.9 % (11.6-14.6)
[2023-02-04 12:33] LABS: CHLORIDE 99 mEq/L (98-107)
[2023-02-04 12:42] LABS: INR 1.1; PROTHROMBIN TIME 11.9 sec (9.6-11.0)
[2023-02-04 14:45] VITALS: BP 158/70; PULSE 88; RESP 16
== END 2023-02-04 14:58 | disposition home or self-care (01) ==
LOC: ER 14:33
DX: D64.9 Anemia, unspecified (principal); R07.89 Other chest pain; I12.0 Hypertensive chronic kidney disease with stage 5 chronic kidney disease or end stage renal disease; E11.22 Type 2 diabetes mellitus with diabetic chronic kidney disease; N18.6 End stage renal disease; Z79.899 Other long term (current) drug therapy
CPT/HCPCS: 36415; 71045; 80053; 85025; 86850; 86900; 99284